=== PATIENT | male | born 1960 | race Caucasian/White ===

== ENCOUNTER 2021-10-11 13:08 | Inpatient (IN) | payer SELFPAY ==
[2021-10-11 13:42] LABS: #Basophils 0.1 10x3/uL (0.0-0.2); #Monocytes 0.7 10x3/uL (0.0-1.1); #Neutrophils 5.7 10x3/uL (1.5-8.4); %Basophils 0.8 % (0.0-2.0); %Eosinophils 0.4 % (0.0-6.0); %Lymphocytes 13.8 % (18.0-47.0); %Monocytes 9.1 % (0.0-10.0); %Neutrophils 75.4 % (40.0-75.0); Hemoglobin 13.3 g/dL (13.5-17.5); Mean Corpuscular HGB CONC 36.5 g/dL (32.0-36.0); Mean Corpuscular Hemoglobin 33.2 pg (27.0-33.0); Mean Corpuscular Volume 90.8 fl (81.2-95.1); Platelet Count 210 10x3/uL (150-450); RBC Distribution Width 12.4 % (11.5-14.5); Red Blood Cell (RBC) Count 4.01 10x6/uL (4.32-5.72); White Blood Cell (WBC) Count 7.6 10x3/uL (3.5-10.5)
[2021-10-11 14:04] LABS: ALT (SGPT) 10 U/L (8-55); AST (SGOT) 21 U/L (5-34); Albumin 3.3 g/dL (3.4-4.8); Alkaline Phosphatase 83 U/L (40-110); Anion Gap 15 mmol/L (10-20); BUN (Urea Nitrogen) 5 mg/dL (8.4-25.7); Bilirubin, Total 0.7 mg/dL (0.2-1.2); Calc. Creatinine Clearance 0 mL/min (70-130); Calcium 8.6 mg/dL (7.8-10.44); Carbon Dioxide 20 mmol/L (23-31); Chloride 98 mmol/L (98-107); Estimated GFR 112; Globulin 3.2 g/dL (2.4-3.5); Glucose 67 mg/dL (80-115); Magnesium 1.7 mg/dL (1.6-2.6); Potassium 4.5 mmol/L (3.5-5.1); Protein, Total 6.5 g/dL (5.8-8.1); Sodium 128 mmol/L (136-145)
[2021-10-11] MEDS ORDERED: Diltiazem 125 MG/25 ML ONE (15:35)
[2021-10-11] MEDS ORDERED: Nitroglycerin 0.4 MG TAB (25 Tab Bottle) SL PRN (15:39)
[2021-10-11] MEDS ORDERED: Diltiazem 125 MG in Sodium Chloride 0.9% 100 ML IVPB SCH (16:00)
[2021-10-11 16:37] LABS: Troponin I 0.021 ng/mL (< 0.028)
[2021-10-11 17:12] LABS: Troponin I 0.021 ng/mL (< 0.028)
[2021-10-11] MEDS ORDERED: Magnesium 2 GM/50 ML(in water) 2 GM in Premix Bag 1 BAG IVPB SCH (17:15)
[2021-10-11 17:21] VITALS: BMI 19.5
[2021-10-11 19:07] LABS: Troponin I 0.028 ng/mL (< 0.028)
[2021-10-11] MEDS: Nicotine 14 MG PATCH TD SCH (19:29)
[2021-10-11] MEDS ORDERED: HYDROcodone/Acetaminophen 5/325 mg Tablet PO PRN (20:03)
[2021-10-11 20:20] LABS: Troponin I 0.033 ng/mL (< 0.028)
[2021-10-11] MEDS: Metoprolol Tartrate 25 MG TAB PO SCH (20:55)
[2021-10-11] MEDS: Acetaminophen 325 MG TAB PO PRN (20:56)
[2021-10-12] MEDS ORDERED: Enoxaparin Sodium 60 MG/0.6 ML SYRINGE SC SCH (05:00)
[2021-10-12 06:44] LABS: Cardiac Risk 1.9 (Less than 4.5)
[2021-10-12] MEDS: Metoprolol Tartrate 25 MG TAB PO SCH (08:50)
[2021-10-12] MEDS: Acetaminophen 325 MG TAB PO PRN (08:50)
[2021-10-12] MEDS ORDERED: Aspirin Chewable 81 MG TAB PO SCH (09:00)
[2021-10-12] MEDS ORDERED: Metoprolol Tartrate 25 MG TAB PO SCH ×2 (15:00→21:00)
[2021-10-12 16:21] VITALS: BP 118/71; TEMP 99
[2021-10-12] MEDS: Nicotine 14 MG PATCH TD SCH (17:53)
[2021-10-12] MEDS ORDERED: Famotidine 20 MG TAB PO SCH (21:00)
[2021-10-12] MEDS ORDERED: Apixaban 5 MG TAB PO SCH (21:00)
[2021-10-12] MEDS ORDERED: Atorvastatin Calcium 20 MG TAB PO SCH (21:00)
== END 2021-10-12 18:23 | disposition home or self-care (01) | DRG 281 ==
LOC: CSHERS 13:08 → CSHTELE 17:05
PROVIDERS: ADMIT Hospitalist; ATTEND Family Medicine
DX: I48.91 Unspecified atrial fibrillation (principal); I21.A1 Myocardial infarction type 2; E87.1 Hypo-osmolality and hyponatremia; I20.0 Unstable angina; F17.210 Nicotine dependence, cigarettes, uncomplicated; Z20.822 Contact with and (suspected) exposure to COVID-19; Z71.6 Tobacco abuse counseling; Z86.73 Personal history of transient ischemic attack (TIA), and cerebral infarction without residual deficits
CPT/HCPCS: 36415; 70450; 71045; 80053; 80061; 83735; 84443; 84484; 85025; 93005; 93010; 93306; 94760; J1650; J3475; J3490; U0003; U0005